=== PATIENT | male | born 1970 | race Caucasian/White ===

== ENCOUNTER 2017-05-14 09:42 | Inpatient (IN) | payer OTHER ==
[2017-05-14 11:22] VITALS: BMI 26.6
--- NOTE | 2017-05-14 12:13 | HP ---
COWS - Scale Resting Pulse: 0= NE 80 or Below Sweatin= Chills/Flushing Restless Observation: 3= Extraneous Movement Pupil Size: 2= Moderately Dilated Bone or Joint Aches: 4=Acute Joint/Muscle Pain Runny Nose/ Eye Tearin= Runny Nose/Eyes GI Upset > 30mins: 3= Vomiting/Diarrhea (EARLIER LAST NIGHT--[facility] ER ) Tremor Observation: 1= Tremor [place], Not Seen Yawning Observation: 1= 1-2x During Session Anxiety or Irritability: 1=Feels Anxious/Irritable Goose Flesh Skin: 0=Smooth Skin COWS Score: 18 CIWA Score - CIWA Score Nausea/Vomitin (N/V) Muscle Tremors: 1-None Visible, but [place] Anxiety: 4-Mod. Anxious/Guarded Agitation: 3 Paroxysmal Sweats: 1-Minimal Palms Moist Orientation: 0-Oriented Tacttile Disturbances: 3-Moderate Itch/Numb/Burn Auditory Disturbances: 0-None Visual Disturbances: 0-None Headache: 0-None Present CIWA-Ar Total Score: 17 Admission ROS S - HPI Chief Complaint: WITHDRAWAL SX FROM HEROIN AND XANAX. PT HAS A DISCHARGE PAPER WITH HIM FROM [facility] ER STATING HE WAS THERE LAST NIGHT FOR NAUSEA, VOMITING AND SEVER ABDOMINAL PAIN. REPORTS HE WAS HYDRATED,WAS D/C'D THIS MORNING AND SUGGESTED TO GO INTO DETOX. ALERT O X 3. DENIES ACUTE ABDOMINAL PAIN AT THIS TIME. Allergies/Adverse Reactions: Allergies Allergy/AdvReac Type Severity Reaction Status Date / Time haloperidol [From Haldol] Allergy Severe Difficulty Verified 05/14/17 12:48 Breathing - Ebola screening Have you traveled outside of the country in the last 21 days: No Have you had contact with anyone from an Ebola affected area: No Have you been sick,other than usual withdrawal symptoms: No Do you have a fever: No - Review of Systems Constitutional: Chills, Loss of Appetite, Night Sweats, Changes in sleep, Unintentional Wgt. Loss EENT: reports: Blurred Vision (WEARS CONTACT LENSES), Tearing, Nose Congestion Respiratory: reports: No Symptoms reported Cardiac: reports: No Symptoms Reported GI: reports: Constipated, Diarrhea, Nausea, Poor Appetite, Vomiting : reports: No Symptoms Reported Musculoskeletal: reports: Back Pain, Joint Pain, Muscle Pain Integumentary: reports: No Symptoms Reported Neuro: reports: Headache, Tremors, Unsteady Gait Endocrine: reports: No Symptoms Reported Hematology: reports: No Symptoms Reported Psychiatric: reports: Orientated x3 Other Systems: Reviewed and Negative Patient History - Patient Medical History Hx Anemia: No Hx Asthma: No Hx Chronic Obstructive Pulmonary Disease (COPD): No Hx Cardiac Disorders: No Hx Hypertension: No Hx Hypercholesterolemia: No HX Cerebrovascular Accident: No Hx Seizures: No Hx Diabetes: No Hx Gastrointestinal Disorders: No Hx Genitourinary Disorders: No Hx Sexually Transmitted Disorders: No Hx Renal Disease (ESRD): No Hx Thyroid Disease: No Hx Human Immunodeficiency Virus (HIV): No (NEGATIVE HX) Hx Hepatitis C: Yes ("TREATED 10 YRS AGO WITH INTERFERON--IN REMISSION.") Hx Depression: Yes (DRUG(COCAINE)INDUCED PSYCHOSIS IN THE PAST.) Hx Suicide Attempt: No (DENIES) Hx Bipolar Disorder: No Hx Schizophrenia: No - Patient Surgical History Past Surgical History: No Hx Neurologic Surgery: No Hx Cataract Extraction: No Hx Cardiac Surgery: No Hx Lung Surgery: No Hx Breast Surgery: No Hx Breast Biopsy: No Hx Abdominal Surgery: No Hx Appendectomy: No Hx Cholecystectomy: No Hx Genitourinary Surgery: No Hx Orthopedic Surgery: No Anesthesia Reaction: No - PPD History Documented Results: Negative w/o proof Implanted On Prior [facility] Admission?: No PPD to be Administered?: Yes - Reproductive History Patient is a Female of Child Bearing Age (11 -55 yrs old): No (MALE) - Smoking Cessation Smoking history: Current every day smoker Have you smoked in the past 12 months: Yes Aproximately how many cigarettes per day: 20 Hx Chewing Tobacco Use: No Initiated information on smoking cessation: Yes 'Breaking Loose' booklet given: 05/14/17 - Substance & Tx. History Hx Alcohol Use: Yes (SPORADIC DRINK--1-3/ A MONTH) Hx Substance Use: Yes (HEROIN/XANAX) Substance Use Type: Alcohol, Heroin, Tranquilizers Hx Substance Use Treatment: Yes (LAST TX AT [facility]-6 MONTHS AGO) - Substances Abused Alcohol Route: Oral Frequency: 1-3 times last 30 days Amount used: BEER Age of first use: 14 Date of Last Use: 05/06/17 Alprazolam (Xanax) Route: Oral Frequency: Daily Amount used: 4-10 MG /DAY Age of first use: 32 Date of Last Use: 05/13/17 Heroin Route: Injection Frequency: Daily Amount used: 2 BUNDLES Age of first use: 18 Date of Last Use: 05/13/17 Cocaine Route: Smoking Frequency: 1-2 times per week Amount used: 1/2 gram-2 grams Age of first use: 16 Date of Last Use: 05/13/17 Family Disease History - Family Disease History Family History: Denies (FATHER'S SIDE WITH A HX SKIN CANCER.) Admission Physical Exam [facility] - Vital Signs Vital Signs: Vital Signs - 24 hr 05/14/17 11:12 Temperature 97.4 F L Pulse Rate 76 Respiratory 20 Rate Blood Pressure 102/65 - Physical General Appearance: Yes: Moderate Distress, Irritable, Anxious HEENTM: Yes: EOMI, Normocephalic, CHETAN, Pharynx Normal Respiratory: Yes: Chest Non-Tender, Lungs Clear, Normal Breath Sounds, No Respiratory Distress Neck: Yes: No masses,lesions,Nodules, Supple, Trachea in good position Breast: Yes: Breast Exam Deferred Cardiology: Yes: Regular Rhythm, Regular Rate, S1, S2 Abdominal: Yes: Normal Bowel Sounds, Non Tender, Flat Genitourinary: Yes: Other (N/C) Musculoskeletal: Yes: full range of Motion, Gait Steady Extremities: Yes: Normal Range of Motion, Non-Tender Neurological: Yes: 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 NML intact, Fully Oriented, Alert, Motor Strength 5/5 Integumentary: Yes: Dry, Warm Lymphatic: Yes: Within Normal Limits - Diagnostic (1) Opioid dependence with withdrawal Current Visit: Yes Status: Acute (2) Sedative, hypnotic or anxiolytic dependence with withdrawal, uncomplicated Current Visit: Yes Status: Acute (3) Hx of hepatitis C Current Visit: Yes Status: Resolved Cleared for Admission [facility] - Detox or Rehab [facility] Level of Care: Medically Managed Detox Regimen/Protocol: Methadone/Valium [facility] Breath Alcohol Content Breath Alcohol Content: 0 Urine Drug Screen - Results Drug Screen Negative: No Urine Drug Screen Results: THC-Marijuana, PHYLICIA-Cocaine, OPI-Opiates, BZO- Benzodiazepines
[2017-05-14] MEDS ORDERED: IBUPROFEN 400 MG TABLET (FP) PO PRN (12:34)
[2017-05-14] MEDS ORDERED: MENTHOL/PHENOL 1 EACH UD MM PRN (12:34)
[2017-05-14] MEDS ORDERED: MAGNESIUM CITRATE 300 ML BOTTLE PO PRN (12:34)
[2017-05-14] MEDS ORDERED: guaiFENesin/D-METHORPHAN HB 10 ML UNIT-DOSE CUPS PO PRN (12:34)
[2017-05-14] MEDS ORDERED: MAG HYDROX/AL HYDROX/SIMETH 30 ML UNIT-DOSE CUP PO PRN (12:34)
[2017-05-14] MEDS ORDERED: LOPERAMIDE HCL 2 MG CAPSULE PO PRN (12:34)
[2017-05-14] MEDS ORDERED: ACETAMINOPHEN 325 MG TABLET (FP) PO PRN (12:34)
[2017-05-14] MEDS ORDERED: MAGNESIUM HYDROX 2400MG/30ML ORAL SUSPENSION 30 ML CUP PO PRN (12:34)
[2017-05-14] MEDS ORDERED: P-EPHED 60MG/TRIPROLIDI 2.5MG TABLET PO PRN (12:34)
[2017-05-14] MEDS ORDERED: diazePAM 5 MG TABLET PO ONE (13:43)
[2017-05-14] MEDS ORDERED: METHADONE HCL 10 MG TABLET (FOR DETOX USE ONLY) PO ONE ×2 (13:44→23:00)
--- NOTE | 2017-05-14 13:57 | CONSULT ---
[facility] Psychiatric Consult - Data Date of interview: 05/14/17 Admission source: [facility] Identifying data: This is 47 years old male with psychiatric hospitalization history intoxicated with: Opioids, Cocaine, Cannabis, Benzodiazepins Substance Abuse History: - Smoking Cessation. Smoking history: Current every day smoker. Have you smoked in the past 12 months: Yes. Aproximately how many cigarettes per day: 20. Hx Chewing Tobacco Use: No. Initiated information on smoking cessation: Yes. 'Breaking Loose' booklet given: 05/14/17. - Substance & Tx. History. Hx Alcohol Use: Yes (SPORADIC DRINK--1-3/ A MONTH). Hx Substance Use: Yes (HEROIN/XANAX). Substance Use Type: Alcohol, Heroin, Tranquilizers. Hx Substance Use Treatment: Yes (LAST TX AT [facility]-6 MONTHS AGO). - Substances Abused. Alcohol. Route: Oral. Frequency: 1-3 times last 30 days. Amount used: BEER. Age of first use: 14. Date of Last Use: 05/06/17. Alprazolam (Xanax). Route: Oral. Frequency: Daily. Amount used: 4-10 MG /DAY. Age of first use: 32. Date of Last Use: 07/25. Heroin. Route: Injection. Frequency: Daily. Amount used: 2 BUNDLES. Age of first use: 18. Date of Last Use: 05/13/17 Medical History: Denies any significant medical p[roblem Psychiatric History: Patient reports history of Anxiety and Depression,. reports mo9st recent. psychiatrtic admission on about 4 years ago at [facility] for safety, reports currently taking: Trazodone 100mg po qhs Physical/Sexual Abuse/Trauma History: Denies Additional Comment: Trazodone 100mg po qhs Mental Status Exam - Mental Status Exam Alert and Oriented to: Time, Place, Person Cognitive Function: Fair Patient Appearance: Well Groomed Mood: Apprehensive Affect: Mood Congruent Patient Behavior: Cooperative Speech Pattern: Appropriate Voice Loudness: Normal Thought Process: Goal Oriented Thought Disorder: Being Controlled Hallucinations: Denies Suicidal Ideation: Denies Homicidal Ideation: Denies Insight/Judgement: Fair Sleep: Difficulty falling asleep Appetite: Fair Muscle strength/Tone: Normal Gait/Station: Normal Additional Comments: Trazodone 100mg po qhs Psychiatric Findings - Problem List ([place] 1, 2,3) (1) Cocaine abuse Current Visit: Yes Status: Acute (2) Cannabis abuse Current Visit: Yes Status: Acute (3) Drug-induced mood disorder Current Visit: Yes Status: Acute (4) Opioid dependence with withdrawal Current Visit: Yes Status: Acute (5) Sedative, hypnotic or anxiolytic dependence with withdrawal, uncomplicated Current Visit: Yes Status: Acute - Initial Treatment Plan Initial Treatment Plan: Trazodone 100mg po qhs
[2017-05-14] MEDS: diazePAM 5 MG TABLET PO SCH ×2 (14:02→22:10)
[2017-05-14] MEDS: NICOTINE 21 MG/24 HOURS TOPICAL PATCH TD SCH (14:04)
[2017-05-14] MEDS: NICOTINE POLACRILEX 4 MG GUM BUC PRN ×3 (14:49→21:48)
[2017-05-14] MEDS: GABAPENTIN 300 MG CAPSULE (FP) PO SCH ×2 (17:11→22:09)
[2017-05-14 17:17] LABS: HEMATOCRIT 41.2 % (35.4-49); HEMOGLOBIN 13.4 GM/dL (11.7-16.9); MCH 29.2 pg (25.7-33.7); MCHC 32.5 g/dl (32.0-35.9); MEAN CELL VOLUME 89.8 fl (80-96); MEAN PLT VOLUME 9.7 fl (7.5-11.1); PLATELET COUNT 233 K/MM3 (134-434); RBC 4.59 M/mm3 (4.00-5.60); RDW 13.1 % (11.9-15.9); WHITE BLOOD COUNT 9.9 K/mm3 (4.0-10.0)
[2017-05-14 17:27] LABS: CHLORIDE 107 mmol/L (98-107); POTASSIUM 4.6 mmol/L (3.5-5.1); SODIUM 141 mmol/L (136-145)
[2017-05-14 17:33] LABS: ALBUMIN 3.9 g/dl (3.4-5.0); ALK PHOS 63 U/L (45-117); ANION GAP 5 (8-16); BILIRUBIN,TOTAL 0.4 mg/dL (0.2-1.0); BLOOD UREA NITROGEN 21 mg/dL (7-18); CALCIUM 8.3 mg/dL (8.5-10.1); CO2 29 mmol/L (21-32); CREATININE 0.8 mg/dL (0.7-1.3); GLUCOSE,RANDOM 66 mg/dL (74-106); SGOT/AST 9 U/L (15-37); SGPT/ALT 27 U/L (12-78); TOT PROT 6.8 g/dl (6.4-8.2)
--- NOTE | 2017-05-14 17:41 | EKG ---
Test Reason : Blood Pressure : / mmHG Vent. Rate : 070 BPM Atrial Rate : 070 BPM P-R Int : 136 ms QRS Dur : 094 ms QT Int : 416 ms P-R-T Axes : 013 086 051 degrees QTc Int : 449 ms NORMAL SINUS RHYTHM POSSIBLE ANTERIOR INFARCT , AGE UNDETERMINED ABNORMAL ECG NO PREVIOUS ECGS AVAILABLE Confirmed by MELVIN ASHBY, VAN ([id number]) on 05/14/2017 5:41:09 PM Referred By: Confirmed By:VAN CHARLES MD
[2017-05-14] MEDS: diazePAM 5 MG TABLET PO PRN (18:06)
[2017-05-14 18:25] LABS: URINE APPEARANCE SLCLOUDY; URINE BILIRUBIN NEGATIVE (NEGATIVE); URINE BLOOD NEGATIVE (NEGATIVE); URINE COLOR YELLOW; URINE GLUCOSE (UA) 1+ (NEGATIVE); URINE KETONE NEGATIVE (NEGATIVE); URINE LEUK ESTERASE NEGATIVE (NEGATIVE); URINE NITRITE NEGATIVE (NEGATIVE); URINE PROTEIN NEGATIVE (NEGATIVE); URINE UROBILINOGEN NEGATIVE mg/dL (0.2-1.0)
[2017-05-14] MEDS: THIAMINE HCL 100 MG TABLET (FP) PO SCH (22:10)
--- NOTE | 2017-05-14 23:36 | PN ---
[facility] Progress Note Note: Psychiatry Attending on-call's note : Called to enter order for trazodone 100 mg/hs. As per treatment plan. Dr Escudero's note : appreciated. Pharmacy claim of 05/08/17 ([employer]) : Confirmed dose of 100 mg of trazodone. Intervention : trazodone 100 mg po as a single dose. Ordered at patient's specific request. Patient is informed of risk of priapism. Mr Proctor reports months of care with trazodone. Without occurrence of adverse events. Reported to nurse on duty Cherie Guan. Consent (verbal) : obtained from patient.
[2017-05-14] MEDS ORDERED: traZODone HCL 50 MG TABLET (FP) PO ONE (23:39)
[2017-05-15] MEDS: diazePAM 5 MG TABLET PO SCH ×3 (06:00→22:12)
[2017-05-15] MEDS: GABAPENTIN 300 MG CAPSULE (FP) PO SCH ×3 (06:00→22:10)
[2017-05-15] MEDS: NICOTINE POLACRILEX 4 MG GUM BUC PRN ×5 (09:08→21:18)
[2017-05-15] MEDS ORDERED: METHADONE HCL 10 MG TABLET (FOR DETOX USE ONLY) PO SCH (10:00)
--- NOTE | 2017-05-15 10:49 | PN ---
[facility] CIWA - CIWA Score Nausea/Vomitin Muscle Tremors: 3 Anxiety: 3 Agitation: 3 Paroxysmal Sweats: 1-Minimal Palms Moist Orientation: 0-Oriented Tacttile Disturbances: 1-Very Mild Itch/Numbness Auditory Disturbances: 1-Very Mild Visual Disturbances: 0-None Headache: 2-Mild CIWA-Ar Total Score: 17 BHS COWS - Scale Resting Pulse: 0= [place] 80 or Below Sweatin= Chills/Flushing Restless Observation: 3= Extraneous Movement Pupil Size: 1= Pupils >than Normal Bone or Joint Aches: 2= Severe Diffuse Aches Runny Nose/ Eye Tearin= Runny Nose/Eyes GI Upset > 30mins: 2= Nausea/Diarrhea Tremor Observation of Outstretched Hands: 2= Slight Tremor Visible Yawning Observation: 1= 1-2x During Session Anxiety or Irritability: 2=Irritable/Anxious Goose Flesh Skin: 0=Smooth Skin COWS Score: 16 S Progress Note (SOAP) Subjective: ALERT,IRRITABLE,ANXIOUS,INTERRUPTED SLEEP,TREMOR,PAIN IN THE BODY AND BACK Objective: 05/15/17 10:46 Vital Signs Temperature 98.1 F 05/15/17 06:00 Pulse Rate 66 05/15/17 06:00 Respiratory Rate 18 05/15/17 06:00 Blood Pressure 103/61 05/15/17 06:00 O2 Sat by Pulse Oximetry (%) EKG NSR NO CHEST PAIN,NO SOB,NO DIZZINESS Laboratory Last Values WBC 9.9 K/mm3 (4.0-10.0) 05/14/17 12:35 RBC 4.59 M/mm3 (4.00-5.60) 05/14/17 12:35 Hgb 13.4 GM/dL (11.7-16.9) 05/14/17 12:35 Hct 41.2 % (35.4-49) 05/14/17 12:35 MCV 89.8 fl (80-96) 05/14/17 12:35 MCH 29.2 pg (25.7-33.7) 05/14/17 12:35 MCHC 32.5 g/dl (32.0-35.9) 05/14/17 12:35 RDW 13.1 % (11.9-15.9) 05/14/17 12:35 Plt Count 233 K/MM3 (134-434) 05/14/17 12:35 MPV 9.7 fl (7.5-11.1) 05/14/17 12:35 Sodium 141 mmol/L (136-145) 05/14/17 12:35 Potassium 4.6 mmol/L (3.5-5.1) 05/14/17 12:35 Chloride 107 mmol/L (98-107) 05/14/17 12:35 Carbon Dioxide 29 mmol/L (21-32) 05/14/17 12:35 Anion Gap 5 (8-16) L 05/14/17 12:35 BUN 21 mg/dL (7-18) H 05/14/17 12:35 Creatinine 0.8 mg/dL (0.7-1.3) 05/14/17 12:35 Creat Clearance w eGFR > 60 (>60) 05/14/17 12:35 Random Glucose 66 mg/dL (74-106) L 05/14/17 12:35 Calcium 8.3 mg/dL (8.5-10.1) L 05/14/17 12:35 Total Bilirubin 0.4 mg/dL (0.2-1.0) 05/14/17 12:35 AST 9 U/L (15-37) L 05/14/17 12:35 ALT 27 U/L (12-78) 05/14/17 12:35 Alkaline Phosphatase 63 U/L (45-117) 05/14/17 12:35 Total Protein 6.8 g/dl (6.4-8.2) 05/14/17 12:35 Albumin 3.9 g/dl (3.4-5.0) 05/14/17 12:35 Urine Color Yellow 05/14/17 16:00 Urine Appearance Slcloudy 05/14/17 16:00 Urine pH 5.0 (5.0-8.0) 05/14/17 16:00 Ur Specific [place] 1.029 (1.001-1.035) 05/14/17 16:00 Urine Protein Negative (NEGATIVE) 05/14/17 16:00 Urine Glucose (UA) 1+ (NEGATIVE) H 05/14/17 16:00 Urine Ketones Negative (NEGATIVE) 05/14/17 16:00 Urine Blood Negative (NEGATIVE) 05/14/17 16:00 Urine Nitrite Negative (NEGATIVE) 05/14/17 16:00 Urine Bilirubin Negative (NEGATIVE) 05/14/17 16:00 Urine Urobilinogen Negative mg/dL (0.2-1.0) 05/14/17 16:00 Ur Leukocyte Esterase Negative (NEGATIVE) 05/14/17 16:00 RPR Titer Nonreactive (NONREACTIVE) 05/14/17 12:35 Assessment: 05/15/17 10:48 WITHDRAWAL SYMPTOM Plan: CONTINUE DETOX
[2017-05-15] MEDS: diazePAM 5 MG TABLET PO PRN ×2 (11:14→16:57)
[2017-05-15] MEDS: PRENATAL VITAMINS W/ FOLIC ACID TABLET (FP) PO SCH (11:14)
[2017-05-15] MEDS: NICOTINE 21 MG/24 HOURS TOPICAL PATCH TD SCH (11:15)
[2017-05-15] MEDS: METHOCARBAMOL 500 MG TABLET PO PRN (12:57)
[2017-05-15] MEDS: cloNIDine HCL 0.1 MG TABLET PO PRN (12:58)
--- NOTE | 2017-05-15 17:35 | EKG ---
Test Reason : Blood Pressure : / mmHG Vent. Rate : 068 BPM Atrial Rate : 068 BPM P-R Int : 150 ms QRS Dur : 104 ms QT Int : 390 ms P-R-T Axes : 063 092 057 degrees QTc Int : 414 ms NORMAL SINUS RHYTHM RIGHTWARD AXIS BORDERLINE ECG WHEN COMPARED WITH ECG OF 14-MAY-2017 14:17, NO SIGNIFICANT CHANGE WAS FOUND Confirmed by Josafat Smith ([id number]) on 05/15/2017 5:34:57 PM Referred By: Confirmed By:Josafat Smith
[2017-05-15] MEDS: THIAMINE HCL 100 MG TABLET (FP) PO SCH (22:10)
[2017-05-15] MEDS ORDERED: traZODone HCL 50 MG TABLET (FP) PO ONE (23:02)
[2017-05-16] MEDS: GABAPENTIN 300 MG CAPSULE (FP) PO SCH ×3 (05:59→22:15)
[2017-05-16] MEDS: diazePAM 5 MG TABLET PO PRN ×3 (06:01→18:57)
[2017-05-16] MEDS: NICOTINE POLACRILEX 4 MG GUM BUC PRN ×4 (06:03→18:07)
[2017-05-16] MEDS ORDERED: METHADONE HCL 5 MG TABLET (FOR DETOX USE ONLY) PO SCH (10:00)
[2017-05-16] MEDS: PRENATAL VITAMINS W/ FOLIC ACID TABLET (FP) PO SCH (11:16)
[2017-05-16] MEDS: METHOCARBAMOL 500 MG TABLET PO PRN (11:16)
[2017-05-16] MEDS: diazePAM 5 MG TABLET PO SCH ×2 (11:16→22:15)
[2017-05-16] MEDS: cloNIDine HCL 0.1 MG TABLET PO PRN (11:16)
[2017-05-16] MEDS: NICOTINE 21 MG/24 HOURS TOPICAL PATCH TD SCH (11:17)
--- NOTE | 2017-05-16 11:42 | PN ---
S CIWA - CIWA Score Nausea/Vomitin Muscle Tremors: 3 Anxiety: 3 Agitation: 3 Paroxysmal Sweats: 1-Minimal Palms Moist Orientation: 0-Oriented Tacttile Disturbances: 1-Very Mild Itch/Numbness Auditory Disturbances: 1-Very Mild Visual Disturbances: 0-None Headache: 2-Mild CIWA-Ar Total Score: 17 BHS COWS - Scale Resting Pulse: 0= [place] 80 or Below Sweatin= Chills/Flushing Restless Observation: 3= Extraneous Movement Pupil Size: 1= Pupils >than Normal Bone or Joint Aches: 2= Severe Diffuse Aches Runny Nose/ Eye Tearin= Runny Nose/Eyes GI Upset > 30mins: 2= Nausea/Diarrhea Tremor Observation of Outstretched Hands: 2= Slight Tremor Visible Yawning Observation: 1= 1-2x During Session Anxiety or Irritability: 2=Irritable/Anxious Goose Flesh Skin: 0=Smooth Skin COWS Score: 16 S Progress Note (SOAP) Subjective: ALERT,IRRITABLE,ANXIOUS,INTERRUPTED SLEEP,TREMOR,PAIN IN THE BODY AND BACK Objective: 05/16/17 11:40 Vital Signs Temperature 97.3 F L 05/16/17 10:01 Pulse Rate 96 H 05/16/17 10:01 Respiratory Rate 18 05/16/17 10:01 Blood Pressure 126/69 05/16/17 10:01 O2 Sat by Pulse Oximetry (%) 05/16/17 11:40 Laboratory Last Values WBC 9.9 K/mm3 (4.0-10.0) 05/14/17 12:35 RBC 4.59 M/mm3 (4.00-5.60) 05/14/17 12:35 Hgb 13.4 GM/dL (11.7-16.9) 05/14/17 12:35 Hct 41.2 % (35.4-49) 05/14/17 12:35 MCV 89.8 fl (80-96) 05/14/17 12:35 MCH 29.2 pg (25.7-33.7) 05/14/17 12:35 MCHC 32.5 g/dl (32.0-35.9) 05/14/17 12:35 RDW 13.1 % (11.9-15.9) 02/05/18 12:35 Plt Count 233 K/MM3 (134-434) 05/14/17 12:35 MPV 9.7 fl (7.5-11.1) 05/14/17 12:35 Sodium 141 mmol/L (136-145) 05/14/17 12:35 Potassium 4.6 mmol/L (3.5-5.1) 05/14/17 12:35 Chloride 107 mmol/L (98-107) 05/14/17 12:35 Carbon Dioxide 29 mmol/L (21-32) 05/14/17 12:35 Anion Gap 5 (8-16) L 05/14/17 12:35 BUN 21 mg/dL (7-18) H 05/14/17 12:35 Creatinine 0.8 mg/dL (0.7-1.3) 05/14/17 12:35 Creat Clearance w eGFR > 60 (>60) 05/14/17 12:35 Random Glucose 66 mg/dL (74-106) L 05/14/17 12:35 Calcium 8.3 mg/dL (8.5-10.1) L 05/14/17 12:35 Total Bilirubin 0.4 mg/dL (0.2-1.0) 05/14/17 12:35 AST 9 U/L (15-37) L 05/14/17 12:35 ALT 27 U/L (12-78) 05/14/17 12:35 Alkaline Phosphatase 63 U/L (45-117) 05/14/17 12:35 Total Protein 6.8 g/dl (6.4-8.2) 05/14/17 12:35 Albumin 3.9 g/dl (3.4-5.0) 05/14/17 12:35 Urine Color Yellow 05/14/17 16:00 Urine Appearance Slcloudy 05/14/17 16:00 Urine pH 5.0 (5.0-8.0) 05/14/17 16:00 Ur Specific [place] 1.029 (1.001-1.035) 05/14/17 16:00 Urine Protein Negative (NEGATIVE) 05/14/17 16:00 Urine Glucose (UA) 1+ (NEGATIVE) H 05/14/17 16:00 Urine Ketones Negative (NEGATIVE) 05/14/17 16:00 Urine Blood Negative (NEGATIVE) 05/14/17 16:00 Urine Nitrite Negative (NEGATIVE) 05/14/17 16:00 Urine Bilirubin Negative (NEGATIVE) 05/14/17 16:00 Urine Urobilinogen Negative mg/dL (0.2-1.0) 05/14/17 16:00 Ur Leukocyte Esterase Negative (NEGATIVE) 05/14/17 16:00 RPR Titer Nonreactive (NONREACTIVE) 05/14/17 12:35 Assessment: 05/16/17 11:41 WITHDRAWAL SYMPTOM Plan: CONTINUE DETOX
[2017-05-16] MEDS: hydrOXYzine PAMOATE 50 MG CAPSULE (FP) PO PRN (16:02)
[2017-05-16] MEDS: THIAMINE HCL 100 MG TABLET (FP) PO SCH (22:14)
[2017-05-16] MEDS: traZODone HCL 100 MG TABLET (FP) PO SCH (22:15)
[2017-05-17] MEDS: GABAPENTIN 300 MG CAPSULE (FP) PO SCH ×3 (05:58→22:21)
[2017-05-17] MEDS: diazePAM 5 MG TABLET PO PRN (05:59)
--- NOTE | 2017-05-17 08:38 | PN ---
[facility] Progress Note (SOAP) Subjective: ANXIOUS,INTERRUPTED SLEEP,,IRRITABLE,PAIN IN THE BODY AND BACK GRAY BITE RIGHT BIG TOE,LEFT BIG TOE MIDDLE TOE NUMBESS IN FEET AND TOE BLUEISH DISCOLORATION OF LEFT BIG TOE MIDDLR TOE AND RIGHT BIG TOE MOVEMENT ALL TOES OK DORSALIS PEDIS PULSE STRONG BOTH FEET Objective: 05/17/17 08:37 Vital Signs Temperature 97 F L 05/17/17 06:13 Pulse Rate 72 05/17/17 06:13 Respiratory Rate 18 05/17/17 06:13 Blood Pressure 115/65 05/17/17 06:13 O2 Sat by Pulse Oximetry (%) Assessment: 05/17/17 08:37 WITHDRAWAL SYMPTOM BUT LESS Plan: CONTINUE DETOX,MEDICATION ADJUSTED,DISCHARGE IN AM,FOLLOW UP WITH PMD FOR GRAY BITE
[2017-05-17] MEDS ORDERED: METHADONE HCL 10 MG TABLET (FOR DETOX USE ONLY) PO ONE (10:00)
[2017-05-17] MEDS: PRENATAL VITAMINS W/ FOLIC ACID TABLET (FP) PO SCH (10:53)
[2017-05-17] MEDS: METHOCARBAMOL 500 MG TABLET PO PRN ×2 (10:54→22:20)
[2017-05-17] MEDS: NICOTINE 21 MG/24 HOURS TOPICAL PATCH TD SCH (10:54)
[2017-05-17] MEDS: diazePAM 5 MG TABLET PO SCH ×2 (10:54→22:20)
[2017-05-17] MEDS: cloNIDine HCL 0.1 MG TABLET PO PRN ×2 (10:54→22:21)
[2017-05-17] MEDS: NICOTINE POLACRILEX 4 MG GUM BUC PRN ×2 (10:55→22:21)
[2017-05-17] MEDS: hydrOXYzine PAMOATE 50 MG CAPSULE (FP) PO PRN (13:39)
[2017-05-17] MEDS: THIAMINE HCL 100 MG TABLET (FP) PO SCH (22:20)
[2017-05-17] MEDS: traZODone HCL 100 MG TABLET (FP) PO SCH (22:21)
[2017-05-18] MEDS: GABAPENTIN 300 MG CAPSULE (FP) PO SCH (05:47)
[2017-05-18] MEDS ORDERED: METHADONE HCL 5 MG TABLET (FOR DETOX USE ONLY) PO ONE (06:00)
[2017-05-18 06:03] VITALS: BP 122/64; PULSE 74; TEMP 96.4
--- NOTE | 2017-05-18 08:27 | DS ---
[facility] Detox Discharge Summary Admission Date: 05/14/17 Discharge Date: 05/18/17 - History Present History: Opioid Dependence, Sedative Dependence Additional Comments: follow up with after care program as arrangement Pertinent Past History: hepatitis c drug induced mood disorder old frostbite both big toes - Physical Exam Results Vital Signs: Vital Signs Temperature 96.4 F L 05/18/17 06:03 Pulse Rate 74 05/18/17 06:03 Respiratory Rate 18 05/18/17 06:03 Blood Pressure 122/64 05/18/17 06:03 O2 Sat by Pulse Oximetry (%) Pertinent Admission Physical Exam Findings: withdrawal finding and symptom - Treatment Hospital Course: Detox Protocol Followed, Detoxed Safely, Responded well, Discharged Condition Good - Medication Discharge Medications: Ambulatory Orders Gabapentin [Neurontin -] 300 mg PO Q8H 05/14/17 traZODone HCL [Desyrel -] 100 mg PO HS 05/14/17 - Diagnosis (1) Opioid dependence with withdrawal Current Visit: Yes Status: Acute (2) Sedative, hypnotic or anxiolytic dependence with withdrawal, uncomplicated Current Visit: Yes Status: Acute (3) Frostbite of both great toes Current Visit: Yes Status: Acute - AMA Did Patient Leave Against Medical Advice: No
[2017-05-18] MEDS ORDERED: METHADONE HCL 10 MG TABLET (FOR DETOX USE ONLY) PO SCH (10:00)
[2017-05-18] MEDS ORDERED: diazePAM 5 MG TABLET PO SCH (10:00)
[2017-05-18] MEDS: cloNIDine HCL 0.1 MG TABLET PO PRN (10:24)
[2017-05-18] MEDS: PRENATAL VITAMINS W/ FOLIC ACID TABLET (FP) PO SCH (10:24)
[2017-05-18] MEDS: hydrOXYzine PAMOATE 50 MG CAPSULE (FP) PO PRN (10:24)
[2017-05-18] MEDS: METHOCARBAMOL 500 MG TABLET PO PRN (10:24)
[2017-05-19] MEDS ORDERED: METHADONE HCL 5 MG TABLET (FOR DETOX USE ONLY) PO SCH (06:00)
== END 2017-05-18 10:27 | disposition home or self-care (01) | DRG 773 ==
LOC: YASAS 09:42 → Y6N 13:19
PROVIDERS: ADMIT Internal Medicine; ATTEND Internal Medicine
PROC: HZ2ZZZZ Detoxification Services for Substance Abuse Treatment (ICD-10-PCS; principal; 2017-05-14)
DX: F11.23 Opioid dependence with withdrawal (principal); F13.230 Sedative, hypnotic or anxiolytic dependence with withdrawal, uncomplicated; F14.10 Cocaine abuse, uncomplicated; F12.10 Cannabis abuse, uncomplicated; F17.210 Nicotine dependence, cigarettes, uncomplicated; B18.2 Chronic viral hepatitis C; T33.832A Superficial frostbite of left toe(s), initial encounter; T33.831A Superficial frostbite of right toe(s), initial encounter; X31.XXXA Exposure to excessive natural cold, initial encounter; Y93.9 Activity, unspecified; Y92.9 Unspecified place or not applicable
CPT/HCPCS: 36415; 80053; 81003; 85027; 86593; 93005; 93010; J0735